=== PATIENT | female | born 1985 | race Caucasian/White ===

== ENCOUNTER → 2016-03-28 | Outpatient (CLI) | payer OTHER ==
[~2016-03-28] VITALS: Ht 162.6 cm; Wt 163.1 kg
[~2016-03-28] MED LIST: AMOXICILLIN 50500 MG PO; BCP TD; CEFTIN500 MG PO; CELEXA 20MG20 MG/TAB PO; FOLIC ACID0.8 MG PO; GLUMETZA500 MG PO; INDERAL LA120 MG PO; INDERAL60 MG PO; LORTAB 5/500 501 TAB PO; MULTIPLE VITAMI1 TA2 PO; NORCO 325 MG-51 TAB PO; VYVANSE40 MG PO; YAZ 3 MG-0.02 M1 TAB PO; ZYRTEC10 MG PO; [UNRECOGNIZED DRUG - OTHER] PO
[2016-03-28 16:26] VITALS: BP 132/78; PULSE 76
[2016-03-28 17:11] VITALS: BP 132/78; PULSE 76
== END ==
LOC: LIGHT 14:55
DX: G43.809 Other migraine, not intractable, without status migrainosus (principal); F33.8 Other recurrent depressive disorders; E66.01 Morbid (severe) obesity due to excess calories; Z68.44 Body mass index [BMI] 60.0-69.9, adult; F50.81 Binge eating disorder

== ENCOUNTER → 2016-04-09 | Outpatient (CLI) | payer OTHER | LOC: LIGHT 16:00 | DX: G43.809 Other migraine, not intractable, without status migrainosus (principal); F33.8 Other recurrent depressive disorders; E66.01 Morbid (severe) obesity due to excess calories; Z68.44 Body mass index [BMI] 60.0-69.9, adult; F50.81 Binge eating disorder ==

== ENCOUNTER → 2016-05-09 | Outpatient (CLI) | payer OTHER ==
[~2016-05-09] VITALS: Ht 162.6 cm; Wt 157.2 kg
[2016-05-09 16:54] VITALS: BP 137/80; PULSE 72
[2016-05-09 17:21] VITALS: BP 137/80; PULSE 72
== END ==
LOC: LIGHT 13:17
DX: F33.8 Other recurrent depressive disorders (principal); F50.89 Other specified eating disorder; E66.01 Morbid (severe) obesity due to excess calories; Z68.43 Body mass index [BMI] 50.0-59.9, adult

== ENCOUNTER → 2016-05-22 | Outpatient (CLI) | payer OTHER | LOC: BHSO 10:55 → LIGHT 10:55 | DX: F33.8 Other recurrent depressive disorders (principal); E66.01 Morbid (severe) obesity due to excess calories; F50.89 Other specified eating disorder; Z68.43 Body mass index [BMI] 50.0-59.9, adult ==

== ENCOUNTER → 2016-06-27 | Outpatient (CLI) | payer OTHER ==
[~2016-06-27] VITALS: Ht 162.6 cm; Wt 159.4 kg
[2016-06-27 16:35] VITALS: BP 141/77; PULSE 77
== END ==
LOC: LIGHT 06-06 14:14
DX: G43.909 Migraine, unspecified, not intractable, without status migrainosus (principal); F32.89 Other specified depressive episodes; F50.89 Other specified eating disorder; E66.01 Morbid (severe) obesity due to excess calories; Z68.44 Body mass index [BMI] 60.0-69.9, adult

== ENCOUNTER → 2016-09-26 | Outpatient (REF) | LOC: WSOH 10:57 | DX: Z02.89 Encounter for other administrative examinations (principal) ==

== ENCOUNTER → 2016-11-07 | Outpatient (CLI) | payer OTHER ==
[~2016-11-07] VITALS: Ht 162.6 cm; Wt 166.0 kg
[2016-11-07 16:30] VITALS: BP 128/70; PULSE 76
== END ==
LOC: LIGHT 09-05 13:04
DX: G43.909 Migraine, unspecified, not intractable, without status migrainosus (principal); F32.9 Major depressive disorder, single episode, unspecified; E66.01 Morbid (severe) obesity due to excess calories; Z68.44 Body mass index [BMI] 60.0-69.9, adult

== ENCOUNTER → 2016-11-14 | Outpatient (REF) | LOC: WSOH 16:15 | DX: Z02.89 Encounter for other administrative examinations (principal) ==

== ENCOUNTER → 2017-01-09 | Outpatient (CLI) | payer OTHER ==
[~2017-01-09] VITALS: Ht 162.6 cm; Wt 163.7 kg
[2017-01-09 13:52] VITALS: BP 140/100; PULSE 76
== END ==
LOC: LIGHT 12-26 10:58
DX: G43.909 Migraine, unspecified, not intractable, without status migrainosus (principal); F32.9 Major depressive disorder, single episode, unspecified; E66.01 Morbid (severe) obesity due to excess calories; Z68.44 Body mass index [BMI] 60.0-69.9, adult; Z71.3 Dietary counseling and surveillance; F50.81 Binge eating disorder

== ENCOUNTER → 2018-06-23 | Outpatient (CLI) | payer BC ==
[2018-06-23 10:26] LABS: BASO % 0.3 % (0.0-2.0); EOS # 0.1 (0.0-0.7); EOS % 2.1 % (0-4.0); GRAN # 3.1 (1.4-6.5); GRAN % 54.1 % (42.2-75.2); HEMATOCRIT 41.2 % (37.0-47.0); HEMOGLOBIN 13.6 g/dl (12.5-16.0); LYMPH # 2.1 (1.2-3.4); LYMPH % 35.8 % (20.0-51.0); MEAN CELL VOLUME 89 fl (80.0-100.0); MEAN CORPUSCULAR HEMOGLOBIN 30 pg (27.0-31.0); MEAN CORPUSCULAR HGB CONC 33 g/dl (33.0-37.0); MEAN PLATELET VOLUME 9.8 fl (7.4-10.4); MONO # 0.4 (0.1-0.6); MONO % 7.5 % (1.7-9.3); PLATELET COUNT 176 K/mm3 (130-400); RED BLOOD COUNT 4.61 M/mm3 (4.10-5.30); REDCELL DISTRIBUTION WIDTH-CV 12.6 % (11.5-14.5)
[2018-06-23 10:31] LABS: ALBUMIN 3.9 gm/dL (3.5-5.0); BILIRUBIN,TOTAL 0.5 mg/dL (0.0-1.0); CALCIUM 8.9 mg/dL (8.4-10.2); CHOLESTEROL RISK RATIO 4.1; CREATININE, serum 0.58 (0.52-1.25); POTASSIUM 4.5 mmol/L (3.4-5.0); TOTAL PROTEIN 7.4 gm/dL (6.4-8.2)
[2018-06-23 11:01] LABS: THYROID STIMULATING HORMONE 2.44 uIU/mL (0.465-4.680)
== END ==
LOC: COL.LAB 09:44
PROVIDERS: Physician Assistant
DX: Z00.00 Encounter for general adult medical examination without abnormal findings (principal); E28.2 Polycystic ovarian syndrome; G43.109 Migraine with aura, not intractable, without status migrainosus; I10 Essential (primary) hypertension; R53.83 Other fatigue; F32.9 Major depressive disorder, single episode, unspecified

== ENCOUNTER → 2018-10-13 | Outpatient (CLI) | payer BC ==
[2018-10-13 10:25] LABS: BASO % 0.3 % (0.0-2.0); EOS # 0.2 (0.0-0.7); EOS % 2.4 % (0-4.0); GRAN # 3.8 (1.4-6.5); GRAN % 55.9 % (42.2-75.2); HEMATOCRIT 41.9 % (37.0-47.0); HEMOGLOBIN 13.8 g/dl (12.5-16.0); LYMPH # 2.4 (1.2-3.4); LYMPH % 34.9 % (20.0-51.0); MEAN CELL VOLUME 89 fl (80.0-100.0); MEAN CORPUSCULAR HEMOGLOBIN 29 pg (27.0-31.0); MEAN CORPUSCULAR HGB CONC 33 g/dl (33.0-37.0); MONO # 0.4 (0.1-0.6); MONO % 6.4 % (1.7-9.3); PLATELET COUNT 199 K/mm3 (130-400); RED BLOOD COUNT 4.73 M/mm3 (4.10-5.30); REDCELL DISTRIBUTION WIDTH-CV 12.3 % (11.5-14.5)
[2018-10-13 10:31] LABS: IRON,SERUM 117 ug/dL (35-150)
[2018-10-13 10:40] LABS: TOTAL IRON BINDING CAPACITY 311 ug/dL (265-497)
[2018-10-14 10:05] LABS: ALKALINE PHOSPHATASE 94 U/L (50-136); ANION GAP 9 mmol/L (7-16); AST,SGOT 30 U/L (15-37); BILIRUBIN,TOTAL 0.5 mg/dL (0.0-1.0); BLOOD UREA NITROGEN 13 mg/dL (7-17); CALCIUM 9.2 mg/dL (8.4-10.2); CARBON DIOXIDE 26 mmol/L (22-30); CHLORIDE 102 mmol/L (98-107); CHOLESTEROL 196 mg/dL (120-200); CHOLESTEROL RISK RATIO 4.5; CREATININE, serum 0.52 (0.52-1.25); GLUCOSE 95 mg/dL (74-106); HDL CHOLESTEROL 43 mg/dL; LDL CHOLESTEROL 122 mg/dL; POTASSIUM 4.6 mmol/L (3.4-5.0); SODIUM 137 mmol/L (137-145); TOTAL PROTEIN 7.6 gm/dL (6.4-8.2); TRIGLYCERIDE 157 mg/dL
[2018-10-14 10:39] LABS: FERRITIN 86 ng/mL (6-137)
== END ==
LOC: COL.LAB 09:14
PROVIDERS: Surgery
DX: G47.00 Insomnia, unspecified (principal); E28.2 Polycystic ovarian syndrome; E66.01 Morbid (severe) obesity due to excess calories

== ENCOUNTER 2018-12-01 08:18 | Day surgery (SDC) | payer BC ==
[~2018-12-01] VITALS: Ht 162.6 cm; Wt 173.6 kg
[~2018-12-01 08:18] MED LIST changes: +PEPCID 20MG TAB20 MG PO
[2018-12-01 08:54] VITALS: BP 134/72; PULSE 65; TEMP 98.3
[2018-12-01 10:05] VITALS: BP 151/88; PULSE 65
--- NOTE | 2018-12-01 10:05 | NUR ---
Patient returns to room 3 per cart and is awake and alert. Transfers from cart to recliner with one person assist. Temp 97.7 and room air sats 95%. IV fluids infusing right hand. Call light in reach. Denies difficulty swallowing. Given Sprite and muffin.
[2018-12-01 10:20] VITALS: BP 133/78; PULSE 61
--- NOTE | 2018-12-01 10:20 | NUR ---
Tolerated muffin and Sprite. Awake and alert. Ready for discharge.
--- NOTE | 2018-12-01 10:20 | NUR ---
IV discontinued and patient dresses self.
--- NOTE | 2018-12-01 10:33 | NUR ---
Given dismissal instructions and voices understanding of these. Instructed to avoid all NSAIDS.
--- NOTE | 2018-12-01 10:35 | NUR ---
Patient dismissed to home per private vehicle driven by spouse and escorted to the front door by RN.
== END 2018-12-01 10:35 | disposition home or self-care (01) ==
LOC: SDCO 08:18
DX: K29.30 Chronic superficial gastritis without bleeding (principal); K44.9 Diaphragmatic hernia without obstruction or gangrene; K25.9 Gastric ulcer, unspecified as acute or chronic, without hemorrhage or perforation; I10 Essential (primary) hypertension; G43.909 Migraine, unspecified, not intractable, without status migrainosus; Z87.442 Personal history of urinary calculi; F32.9 Major depressive disorder, single episode, unspecified; E28.2 Polycystic ovarian syndrome; Z79.899 Other long term (current) drug therapy
CPT/HCPCS: J2250; J2704; J7120